=== PATIENT | male | born 2000 | race African-American/Black ===

== ENCOUNTER 2019-04-27 20:45 | Emergency (ER) | payer SELFPAY ==
[~2019-04-27] VITALS: Ht 177.8 cm; Wt 72.7 kg
[2019-04-27 20:54] VITALS: BP 136/80; TEMP 99.6
[2019-04-27 21:25] LABS: STREP SCREEN NEGATIVE
[2019-04-27] MEDS ORDERED: NORCO 325 MG-51 TAB PO (21:37)
[2019-04-27] MEDS ORDERED: CLEOCIN HCL300 MG PO (21:37)
[2019-04-27 22:33] VITALS: PULSE 74
== END 2019-04-27 22:33 | disposition home or self-care (01) ==
LOC: COL.ER 20:45
PROVIDERS: Physician Assistant
DX: J36 Peritonsillar abscess (principal); F12.90 Cannabis use, unspecified, uncomplicated
CPT/HCPCS: J1100; J1885; J7030